=== PATIENT | female | born 1980 | race Caucasian/White ===

== ENCOUNTER 2025-01-29 09:07 | Emergency (ER) | payer OTHER, SELFPAY ==
[2025-01-29 09:24] VITALS: BP 122/71; PULSE 73; RESP 16; TEMP 36.3; O2SAT 98
[2025-01-29 09:48] VITALS: BP 116/82; PULSE 65; RESP 16; TEMP 36.6; O2SAT 98
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
[2025-01-29] MEDS: TETANUS,DIPHTHERIA,AC PERTUSSIS ADULT (0.5 ML) BOOSTRIX IM (12:21)
[2025-01-29 12:23] VITALS: BP 102/69; PULSE 55; RESP 16; O2SAT 98
[2025-01-29 14:03] VITALS: BP 112/79
== END 2025-01-29 14:06 | disposition home or self-care (01) ==
PROVIDERS: Emergency Provider Student in an Organized Health Care Education/Training Program
DX: S51.811A Laceration without foreign body of right forearm, initial encounter (principal); W25.XXXA Contact with sharp glass, initial encounter; Z23 Encounter for immunization
CPT/HCPCS: 12002; 90471; 90715; 99282